=== PATIENT | female | born 1995 | race Hispanic/Latino ===

== ENCOUNTER 2018-08-28 15:23 | Emergency (ER) | payer OTHER ==
[2018-08-28 17:30] LABS: Urine Blood NEGATIVE (NEG); Urine Glucose NEGATIVE (NEG); Urine Protein NEGATIVE (NEG); Urine Specific Gravity 1.015 (1.005-1.030)
--- NOTE | 2018-08-28 17:52 | RAD REPORT ---
EXAM DESCRIPTION: RAD - Shoulder Left 2 View - 08/28/2018 5:30 pm CLINICAL HISTORY: Shoulder pain following lifting injury COMPARISON: None. TECHNIQUE: Internal and external rotation views of the left shoulder were obtained. FINDINGS: There is no fracture or dislocation. AC joint is normal in appearance. No acute or suspici ous findings. IMPRESSION: Negative two-view left shoulder examination.
--- NOTE | 2018-08-28 18:20 | ER ---
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 Transition of care: patient was not received from another setting of care. Onset of symptoms was August 28, 2018. Risk Assessment: Do you want to hurt yourself or someone else? Patient reports no desire to harm self or others. Initial Sepsis Screen: Does the patient meet any 2 criteria? No. Patient's initial sepsis screen is negative. Does the patient have a suspected source of infection? No. Patient's initial sepsis screen is negative. Care prior to arrival: None. 15:37 Method Of Arrival: Ambulatory la1 15:37 Acuity: DIONTE 4 la1 Triage Assessment: 18:00 Injury Description:. 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 - Social history:: Smoking status: Patient/guardian denies using tobacco. - Ebola Screening: : No symptoms or risks identified at this time. Screenin:13 Abuse screen: Denies threats or abuse. Denies injuries from another. Nutritional la1 screening: On. Tuberculosis screening: No symptoms or risk factors identified. Fall Risk None identified. Assessment: 16:12 General: Appears in no apparent distress. Behavior is calm, cooperative. Pain: la1 Complains of pain in anterior aspect of left shoulder and posterior aspect of left shoulder. Neuro: Level of Consciousness is awake, alert, obeys commands, Oriented to person, place, time, situation. Cardiovascular: Capillary refill < 3 seconds Patient's skin is warm and dry. Respiratory: Airway is patent Respiratory effort is even, unlabored, Respiratory pattern is regular, symmetrical. GI: No signs and/or symptoms were reported involving the gastrointestinal system. Musculoskeletal: Circulation, motion, and sensation intact. Capillary refill < 3 seconds, Range of motion: intact in all extremities. 17:24 Reassessment: Patient appears in no apparent distress at this time. Patient and/or iw family updated on plan of care and expected duration. Pain level reassessed. Patient is alert, oriented x 3, equal unlabored respirations, skin warm/dry/pink. Vital Signs: 15:39 BP 131 / 75; Pulse 89; Resp 18; Temp 98.1; Pulse Ox 100% on R/A; Weight 70.31 kg; la1 Height 5 ft. 0 in. (152.40 cm); 15:39 Body Mass Index 30.27 (70.31 kg, 152.40 cm) la1 ED Course: 15:33 Patient arrived in ED. mr 15:38 Triage completed. la1 15:38 Arm band placed on left wrist. la1 16:12 Joshua Fitzgerald RN is Primary Nurse. la1 16:13 Call light in reach. la1 16:13 No provider procedures requiring assistance completed. Patient did not have IV access la1 during this emergency room visit. 16:22 Yifan Daniel PA is PHCP. cp 16:22 Sea Greene MD is Attending Physician. cp 17:30 XRAY Shoulder LEFT 2 view In Process Unspecified. EDMS 18:46 Primary Nurse role handed off by Joshua Fitzgerald RN iw 18:46 Abby Laurent RN is Primary Nurse. iw Administered Medications: No medications were administered Outcome: 18:19 Discharge ordered by . cp 18:45 Discharged to home ambulatory, with family. iw 18:45 Condition: good 18:45 Discharge instructions given to patient, family, Instructed on discharge instructions, follow up and referral plans. medication usage, Demonstrated understanding of instructions, follow-up care, medications, Prescriptions given X 1. 18:46 Patient left the ED. iw Signatures: Dispatcher [employer] EDNJ Alisha Silverman mr Abby Laurent RN RN iw Joshua Fitzgerald RN RN la1 Yifan Daniel PA PA cp
--- NOTE | 2018-08-28 18:21 | EDPHYS ---
Physician Documentation [facility] Name: Joan Reynolds Age: 22 yrs Sex: Female : 1995 Arrival Date: 08/28/2018 Time: 15:33 Bed 10 Private MD: ED Physician Sea Greene HPI: 08/28 16:50 This 22 yrs old Female presents to ER via Ambulatory with complaints of cp Shoulder Injury. 16:50 The patient or guardian complains of pain, that is acute. left shoulder. cp 16:50 Context: The problem was sustained at work, resulted from lifting and tossing heavy bag cp of trash, The patient reports no decreased range of motion. The patient reports no obvious deformity. Onset: The symptoms/episode began/occurred today. Associated signs and symptoms: Pertinent negatives: chest pain, neck pain, Numbness in left arm Weakness in left arm. Severity of symptoms: in the emergency department the symptoms have improved, mildly. Treatment prior to arrival includes: no previous treatment. 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 - Social history:: Smoking status: Patient/guardian denies using tobacco. - Ebola Screening: : No symptoms or risks identified at this time. ROS: 17:00 Constitutional: Negative for body aches, chills, fever, poor PO intake. cp 17:00 Eyes: Negative for injury, pain, redness, and discharge. cp 17:00 ENT: Negative for drainage from ear(s), ear pain, sore throat, difficulty swallowing, difficulty handling secretions. 17:00 Cardiovascular: Negative for chest pain, edema, palpitations. 17:00 Respiratory: Negative for cough, shortness of breath, wheezing. 17:00 Abdomen/GI: Negative for abdominal pain, nausea, vomiting, and diarrhea, constipation, black/tarry stool, rectal bleeding. 17:00 Back: Negative for pain at rest, pain with movement, radiated pain. 17:00 MS/extremity: Positive for pain, tenderness, of the lateral aspect left shoulder, Negative for decreased range of motion, deformity, paresthesias, warmth. 17:00 Skin: Negative for cellulitis, rash. 17:00 Neuro: Negative for dizziness, headache, numbness, weakness. 17:00 All other systems are negative. Exam: 17:05 Constitutional: The patient appears in no acute distress, alert, awake, cp non-diaphoretic, non-toxic, well developed, well nourished. 17:05 Head/Face: Normocephalic, atraumatic. cp 17:05 Eyes: Periorbital structures: appear normal, Conjunctiva: normal, no exudate, no injection, Sclera: no appreciated abnormality, Lids and lashes: appear normal, bilaterally. 17:05 ENT: External ear(s): are unremarkable, Nose: is normal, Mouth: Lips: dry, Oral mucosa: moist, dry, Posterior pharynx: is normal, airway is patent, no erythema, no exudate. 17:05 Neck: C-spine: no acute changes, ROM/movement: is normal, is supple. 17:05 Chest/axilla: Inspection: normal, Palpation: is normal, no crepitus, no tenderness. 17:05 Cardiovascular: Rate: normal, Rhythm: regular, Pulses: Pulses are 2+ in right radial artery and left radial artery. Heart sounds: murmur, not appreciated, Edema: is not appreciated, JVD: is not appreciated. 17:05 Respiratory: the patient does not display signs of respiratory distress, Respirations: normal, no use of accessory muscles, no retractions, no splinting, no tachypnea, labored breathing, is not present, Breath sounds: are clear throughout, no decreased breath sounds, no stridor, no wheezing. 17:05 Abdomen/GI: Inspection: abdomen appears normal, Palpation: abdomen is soft and non-tender, in all quadrants. 17:05 Back: pain, is absent, ROM is normal. 17:05 Musculoskeletal/extremity: Extremities: grossly normal except: noted in the lateral aspect below joint line of left shoulder: tenderness, There is no evidence of decreased ROM, swelling, ROM: full active range of motion, in the left shoulder, Perfusion: the extremity is normally perfused throughout, Sensation intact. 17:05 Skin: cellulitis, is not appreciated, no rash present. 17:05 Neuro: Orientation: to person, place \T\ time. Mentation: is normal, Cerebellar function: is grossly normal, Motor: moves all fours, strength is normal, Sensation: no obvious gross deficits. Vital Signs: 15:39 BP 131 / 75; Pulse 89; Resp 18; Temp 98.1; Pulse Ox 100% on R/A; Weight 70.31 kg; la1 Height 5 ft. 0 in. (152.40 cm); 15:39 Body Mass Index 30.27 (70.31 kg, 152.40 cm) la1 MDM: 16:22 Patient medically screened. 18:18 Data reviewed: vital signs, nurses notes, old medical records, and as a result, I will cp discharge patient. 18:18 Differential diagnosis: Anterior dislocation with fracture, Anterior dislocation cp without fracture, Posterior dislocation with fracture, Posterior dislocation without fracture. 18:18 Counseling: I had a detailed discussion with the patient and/or guardian regarding: the cp historical points, exam findings, and any diagnostic results supporting the discharge/admit diagnosis, radiology results, the need for outpatient follow up, a family practitioner, to return to the emergency department if symptoms worsen or persist or if there are any questions or concerns that arise at home. 18:18 Test interpretation: by ED physician or midlevel provider: plain radiologic studies. 08/28 16:46 Order name: Urine Dipstick--Ancillary (enter results); Complete Time: 18:15 08/28 16:46 Order name: Urine --Ancillary (enter results); Complete Time: 18:15 08/28 16:41 Order name: Urine Dipstick-Ancillary (obtain specimen); Complete Time: 17:38 08/28 16:41 Order name: Urine Test (obtain specimen); Complete Time: 17:38 08/28 16:41 Order name: XRAY Shoulder LEFT 2 view; Complete Time: 18:15 08/28 18:15 Order name: Sling; Complete Time: 18:46 cp Administered Medications: No medications were administered Disposition: 08/28/18 18:19 Discharged to Home. Impression: Pain in left shoulder. - Condition is Stable. - Discharge Instructions: Shoulder Pain, Shoulder Range of Motion Exercises. - Prescriptions for Anaprox DS 550 mg Oral Tablet - take 1 tablet by ORAL route every 12 hours As needed; 20 tablet. - Work release form, Medication Reconciliation Form, Thank You Letter, Antibiotic Education, Prescription Opioid Use form. - Follow up: Private Physician; When: 1 week; Reason: Recheck today's complaints. - Problem is new. - Symptoms have improved. Signatures: Dispatcher [employer] EDAbby Jack RN RN iw Joshua Fitzgerald RN RN la1 Yifan Daniel PA PA cp Corrections: (The following items were deleted from the chart) 18:46 18:19 08/28/2018 18:19 Discharged to Home. Impression: Pain in left shoulder. Condition iw is Stable. Forms are Medication Reconciliation Form, Thank You Letter, Antibiotic Education, Prescription Opioid Use. Follow up: Private Physician; When: 1 week; Reason: Recheck today's complaints. Problem is new. Symptoms have improved. cp
== END 2018-08-28 18:46 | disposition home or self-care (01) ==
LOC: ER 15:23
DX: M25.512 Pain in left shoulder (principal); X50.0XXA Overexertion from strenuous movement or load, initial encounter; Y99.0 Civilian activity done for income or pay
CPT/HCPCS: 81003; 81025; 99283

== ENCOUNTER 2018-12-05 17:39 | Emergency (ER) | payer BC, OTHER ==
--- NOTE | 2018-12-05 18:59 | EDPHYS ---
Physician Documentation [facility] Name: Joan Reynolds Age: 22 yrs Sex: Female : 1995 Arrival Date: 12/05/2018 Time: 17:42 Bed 19 Private MD: ED Physician Len Sterling HPI: 12/05 18:55 This 22 yrs old Female presents to ER via Ambulatory with complaints of Skin pm1 Problem. 18:55 The patient's rash thought to be caused by an unknown cause. The rash is located on the pm1 left clavicle, anterior aspect of left upper chest, right breast and left breast and left arm. The rash can be described as macular, vesicular, itchy. Onset: The symptoms/episode began/occurred 3 week(s) ago. Associated signs and symptoms: Pertinent positives: itching, Pertinent negatives: burning sensation, difficulty breathing, fever, Pain swelling of lips, swelling of throat, swelling of tongue, wheezing. Severity of symptoms: in the emergency department the symptoms are worse Pain is currently a 0 / 10. Treatment given at home: none. The patient has not experienced similar symptoms in the past. The patient has not recently seen a physician. Historical: - Allergies: 17:48 No Known Allergies; la1 - PMHx: 17:48 None; la1 - Immunization history:: Adult Immunizations up to date. - Social history:: Smoking status: Patient/guardian denies using tobacco. - Ebola Screening: : No symptoms or risks identified at this time. ROS: 18:55 Constitutional: Negative for fever, chills, and weight loss, Eyes: Negative for injury, pm1 pain, redness, and discharge, ENT: Negative for injury, pain, and discharge, Neck: Negative for injury, pain, and swelling, Cardiovascular: Negative for chest pain, palpitations, and edema, Respiratory: Negative for shortness of breath, cough, wheezing, and pleuritic chest pain, Abdomen/GI: Negative for abdominal pain, nausea, vomiting, diarrhea, and constipation, Back: Negative for injury and pain, : Negative for injury, bleeding, discharge, and swelling, MS/Extremity: Negative for injury and deformity. 18:55 Neuro: Negative for headache, weakness, numbness, tingling, and seizure. 18:55 Skin: Positive for rash, of the left clavicle, anterior aspect of left upper chest, right breast and left breast and left arm. Exam: 18:55 Constitutional: This is a well developed, well nourished patient who is awake, alert, pm1 and in no acute distress. Head/Face: Normocephalic, atraumatic. Eyes: Pupils equal round and reactive to light, extra-ocular motions intact. Lids and lashes normal. Conjunctiva and sclera are non-icteric and not injected. Cornea within normal limits. Periorbital areas with no swelling, redness, or edema. ENT: Nares patent. No nasal discharge, no septal abnormalities noted. Tympanic membranes are normal and external auditory canals are clear. Oropharynx with no redness, swelling, or masses, exudates, or evidence of obstruction, uvula midline. Mucous membranes moist. Neck: Trachea midline, no thyromegaly or masses palpated, and no cervical lymphadenopathy. Supple, full range of motion without nuchal rigidity, or vertebral point tenderness. No Meningismus. Chest/axilla: Normal chest wall appearance and motion. Nontender with no deformity. No lesions are appreciated. Cardiovascular: Regular rate and rhythm with a normal S1 and S2. No gallops, murmurs, or rubs. Normal PMI, no JVD. No pulse deficits. Respiratory: Lungs have equal breath sounds bilaterally, clear to auscultation and percussion. No rales, rhonchi or wheezes noted. No increased work of breathing, no retractions or nasal flaring. Abdomen/GI: Soft, non-tender, with normal bowel sounds. No distension or tympany. No guarding or rebound. No evidence of tenderness throughout. Back: No spinal tenderness. No costovertebral tenderness. Full range of motion. MS/ Extremity: Pulses equal, no cyanosis. Neurovascular intact. Full, normal range of motion. 18:55 Skin: consistent with contact dermatitis, on the left clavicle, anterior aspect of left upper chest, right breast and left breast and left arm, Abby JETT present as environmental conflict manager for evaluation of rash on breast. 18:55 Neuro: Orientation: is normal, Motor: is normal, moves all fours, Gait: is steady, at a normal pace, without difficulty. Vital Signs: 17:49 Pulse 86; Resp 18; Temp 97.9(TE); Pulse Ox 98% ; Weight 68.04 kg; Height 5 ft. 0 in. la1 (152.40 cm); 17:50 BP 119 / 63; la1 17:49 Body Mass Index 29.29 (68.04 kg, 152.40 cm) la1 MDM: 18:20 Patient medically screened. pm1 18:55 Data reviewed: vital signs. Data interpreted: Pulse oximetry: on room air is 98 %. pm1 Interpretation: normal. Counseling: I had a detailed discussion with the patient and/or guardian regarding: the historical points, exam findings, and any diagnostic results supporting the discharge/admit diagnosis, the need for outpatient follow up, a elephant tamer, a family practitioner, to return to the emergency department if symptoms worsen or persist or if there are any questions or concerns that arise at home. Administered Medications: No medications were administered Disposition: 12/06 12:00 Co-signature as Attending Physician, Len Sterling MD. Disposition: 12/05/18 18:58 Discharged to Home. Impression: Rash and other nonspecific skin eruption. - Condition is Stable. - Discharge Instructions: Contact Dermatitis, Rash. - Prescriptions for Bactroban 2 % Topical Ointment - Apply to affected area 1 application by TOPICAL route every 12 hours; 30 gram. Benadryl 25 mg Oral Capsule - take 1 capsule by ORAL route every 6 hours As needed; 30 tablet. Medrol (Guillaume) 4 mg Oral Tablets, Dose Pack - take 1 tablet by ORAL route as directed - follow package instructions; 1 packet. - Medication Reconciliation Form, Thank You Letter, Antibiotic Education, Prescription Opioid Use form. - Follow up: Emergency Department; When: As needed; Reason: Worsening of condition. Follow up: Private Physician; When: 2 - 3 days; Reason: Recheck today's complaints, Continuance of care, Re-evaluation by your physician. - Problem is new. - Symptoms have improved. Signatures: Scott Zapata, SUPERVISORY HISTORIAN SUPERVISORY HISTORIAN Joshua Arredondo RN RN la1 Christian Perez, MOLD STRIPPER MOLD STRIPPER pm1 Len Sterling MD MD Corrections: (The following items were deleted from the chart) 12/05 19:06 18:58 12/05/2018 18:58 Discharged to Home. Impression: Rash and other nonspecific skin em eruption. Condition is Stable. Forms are Medication Reconciliation Form, Thank You Letter, Antibiotic Education, Prescription Opioid Use. Follow up: Emergency Department; When: As needed; Reason: Worsening of condition. Follow up: Private Physician; When: 2 - 3 days; Reason: Recheck today's complaints, Continuance of care, Re-evaluation by your physician. Problem is new. Symptoms have improved. pm1
--- NOTE | 2018-12-05 18:59 | ER ---
Nurse's Notes [facility] Name: Joan Reynolds Age: 22 yrs Sex: Female : 1995 Arrival Date: 12/05/2018 Time: 17:42 Bed 19 Private MD: Diagnosis: Rash and other nonspecific skin eruption Presentation: 12/05 17:48 Presenting complaint: Patient states: I have a rash on my left arm, breasts, and armpit la1 for the last 3 weeks. Transition of care: patient was not received from another setting of care. Onset of symptoms was December 05, 2018. Risk Assessment: Do you want to hurt yourself or someone else? Patient reports no desire to harm self or others. Initial Sepsis Screen: Does the patient meet any 2 criteria? No. Patient's initial sepsis screen is negative. Does the patient have a suspected source of infection? No. Patient's initial sepsis screen is negative. Care prior to arrival: None. 17:48 Method Of Arrival: Ambulatory la1 17:48 Acuity: DIONTE 5 la1 Historical: - Allergies: 17:48 No Known Allergies; la1 - PMHx: 17:48 None; la1 - Immunization history:: Adult Immunizations up to date. - Social history:: Smoking status: Patient/guardian denies using tobacco. - Ebola Screening: : No symptoms or risks identified at this time. Screenin:45 Abuse screen: Denies threats or abuse. Nutritional screening: No deficits noted. em Tuberculosis screening: No symptoms or risk factors identified. Fall Risk None identified. Assessment: 18:45 General: Appears in no apparent distress. comfortable, Behavior is calm, cooperative. em Pain: Denies pain. Neuro: Level of Consciousness is awake, alert, obeys commands, Oriented to person, place, time, situation. Cardiovascular: Capillary refill < 3 seconds Patient's skin is warm and dry. Respiratory: Airway is patent Respiratory effort is even, unlabored, Respiratory pattern is regular, symmetrical. Derm: Rash noted that is itchy, red, on anterior aspect of left upper chest, right breast, left breast and left arm Reports burning, itching, since 3 weeks ago. Musculoskeletal: Range of motion: intact in all extremities. Vital Signs: 17:49 Pulse 86; Resp 18; Temp 97.9(TE); Pulse Ox 98% ; Weight 68.04 kg; Height 5 ft. 0 in. la1 (152.40 cm); 17:50 BP 119 / 63; la1 17:49 Body Mass Index 29.29 (68.04 kg, 152.40 cm) la1 ED Course: 17:42 Patient arrived in ED. as 17:48 Triage completed. la1 17:48 Arm band placed on left wrist. la1 18:19 Christian Perez NP is PHCP. pm1 18:20 Len Sterling MD is Attending Physician. pm1 18:45 Patient has correct armband on for positive identification. Bed in low position. Call em light in reach. Adult w/ patient. 18:45 MALIHA Mora chaperoned provider for breast exam. em 19:03 Scott Zapata LVN is Primary Nurse. em 19:06 Patient did not have IV access during this emergency room visit. em Administered Medications: No medications were administered Outcome: 18:58 Discharge ordered by MD. pm1 19:06 Discharged to home ambulatory, with family. em 19:06 Condition: good 19:06 Discharge instructions given to patient, Instructed on discharge instructions, follow up and referral plans. medication usage, Demonstrated understanding of instructions, follow-up care, medications, Prescriptions given X 3. 19:06 Patient left the ED. em Signatures: Scott Zapata LVN LVN em Lianna Alicea Lee, RN RN la1 Christian Perez NP CLOTHING EXAMINER pm1
== END 2018-12-05 19:06 | disposition home or self-care (01) ==
LOC: ER 17:39
DX: R21 Rash and other nonspecific skin eruption (principal)
CPT/HCPCS: 99282

== ENCOUNTER 2019-04-07 15:15 | Emergency (ER) | payer BC, SELFPAY ==
[2019-04-07] MEDS ORDERED: FENTANYL CITR 100 MCG/2 ML ONE (15:38)
[2019-04-07] MEDS ORDERED: ONDANSETRON 4 MG/2 ML VIAL ONE (15:39)
--- NOTE | 2019-04-07 15:51 | RAD REPORT ---
EXAM DESCRIPTION: RAD - Ankle Left 3 View -04/07/2019 3:46 pm CLINICAL HISTORY: Left ankle pain status post injury FINDINGS: No fracture or dislocation is seen.
--- NOTE | 2019-04-07 15:54 | RAD REPORT ---
EXAM DESCRIPTION: RAD - Foot Left 3 View - 04/07/2019 3:45 pm CLINICAL HISTORY: Left Foot pain status post injury FINDINGS: No fracture or dislocation is seen.
[2019-04-07] MEDS ORDERED: TETANUS & DIPHTHERIA TOX,ADULT 0.5 ML VIAL ONE (16:07)
[2019-04-07] MEDS ORDERED: BUPIVACAINE 0.5% PF 10 ML VIAL ONE (16:07)
[2019-04-07] MEDS ORDERED: LIDOCAINE 1% MPF 5 ML VIAL ONE (16:07)
--- NOTE | 2019-04-07 16:39 | EDPHYS ---
Physician Documentation [facility] Name: Joan Reynolds Age: 23 yrs Sex: Female : 1995 Arrival Date: 04/07/2019 Time: 15:18 Bed 2 Private MD: ED Physician Yifan Bajwa HPI: 04/07 15:26 This 23 yrs old Female presents to ER via EMS with complaints of Foot Injury, cp Crush Injury To Foot. 15:26 The patient presents with a crush injury, heavy ice cart. The complaints affect the cp dorsum of left foot. Context: cart rolled over foot. Onset: The symptoms/episode began/occurred just prior to arrival. 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 - Social history:: Smoking status: Patient/guardian denies using tobacco. - Ebola Screening: : No symptoms or risks identified at this time. ROS: 15:27 Eyes: Negative for injury, pain, redness, and discharge. cp 15:27 Constitutional: Negative for body aches, chills, fever. 15:27 Cardiovascular: Negative for chest pain. 15:27 Respiratory: Negative for cough, shortness of breath, wheezing. 15:27 Abdomen/GI: Negative for abdominal pain, nausea, vomiting, and diarrhea. 15:27 MS/extremity: Positive for injury or acute deformity, ecchymosis, pain, swelling, tenderness, of the dorsum of left foot. 15:27 All other systems are negative. Exam: 15:28 Head/Face: Normocephalic, atraumatic. cp 15:28 Constitutional: The patient appears in no acute distress, alert, awake, non-toxic, well developed, well nourished, uncomfortable. Vital Signs: 15:15 BP 122 / 84; Pulse 69; Resp 20; Temp 99.1(O); Pulse Ox 98% on R/A; Weight 71.67 kg; sv Height 5 ft. 0 in. (152.40 cm); Pain 10/10; 16:00 Pain 10/10; sv 16:00 BP 130 / 80; Pulse 70; Resp 22; Temp 99(O); Pulse Ox 98% ; sv 17:00 BP 120 / 77; Pulse 71; Resp 18; Temp 99; Pulse Ox 99% ; sv 15:15 Body Mass Index 30.86 (71.67 kg, 152.40 cm) sv Calypso Coma Score: 15:15 Eye Response: spontaneous(4). Verbal Response: oriented(5). Motor Response: obeys sv commands(6). Total: 15. 16:00 Eye Response: spontaneous(4). Verbal Response: oriented(5). Motor Response: obeys sv commands(6). Total: 15. 17:00 Eye Response: spontaneous(4). Verbal Response: oriented(5). Motor Response: obeys sv commands(6). Total: 15. Trauma Score (Adult): 15:15 Eye Response: spontaneous(1); Verbal Response: oriented(1); Motor Response: obeys sv commands(2); Systolic BP: > 89 mm Hg(4); Respiratory Rate: 10 to 29 per min(4); William Score: 15; Trauma Score: 12 16:00 Eye Response: spontaneous(1); Verbal Response: oriented(1); Motor Response: obeys sv commands(2); Systolic BP: > 89 mm Hg(4); Respiratory Rate: 10 to 29 per min(4); Calypso Score: 15; Trauma Score: 12 17:00 Eye Response: spontaneous(1); Verbal Response: oriented(1); Motor Response: obeys sv commands(2); Systolic BP: > 89 mm Hg(4); Respiratory Rate: 10 to 29 per min(4); Calypso Score: 15; Trauma Score: 12 Laceration: 16:35 Wound Repair of 2cm ( 0.8in ) subcutaneous laceration to web space of left third and cp fourth toes. Linear shaped.. Distal neuro/vascular/tendon intact. Anesthesia: Wound infiltrated with 10 mls of Lido/Marcaine. Wound prep: Moderate cleansing by me, Wound irrigation by me. Skin closed with 5 5-0 Prolene using interrupted sutures and sterile technique. Dressed with Bacitracin, 4x4's. Patient tolerated fair. MDM: 15:27 Patient medically screened. [facility] 15:30 Differential diagnosis: dislocation, open fracture, closed fracture, contusion, simple cp laceration. 16:37 Data reviewed: vital signs, nurses notes, radiologic studies, plain films. 16:37 Test interpretation: by ED physician or midlevel provider: xrays of left ankle negative cp for fracture and xrays of left foot negative for fracture. Counseling: I had a detailed discussion with the patient and/or guardian regarding: the historical points, exam findings, and any diagnostic results supporting the discharge/admit diagnosis, radiology results, the need for outpatient follow up, a family practitioner, to return to the emergency department if symptoms worsen or persist or if there are any questions or concerns that arise at home. Response to treatment: the patient's symptoms have markedly improved after treatment, and as a result, I will discharge patient. 04/07 15:21 Order name: XRAY Foot LEFT 3 View; Complete Time: 16:41 cp 04/07 16:41 Interpretation: Reviewed report. 04/07 15:21 Order name: XRAY Ankle LEFT 3 view; Complete Time: 16:41 cp 04/07 16:41 Interpretation: Report reviewed. 04/07 15:21 Order name: IV; Complete Time: 15:27 cp 04/07 15:49 Order name: Dressing - Wound; Complete Time: 17:18 cp 04/07 15:49 Order name: Gloves, Sterile; Complete Time: 17:18 cp 04/07 15:49 Order name: Setup Suture Tray; Complete Time: 17:18 cp 04/07 16:36 Order name: Wound dressing; Complete Time: 17:18 cp 04/07 16:36 Order name: Post-op Orthopedic Shoe; Complete Time: 17:18 cp 04/07 16:36 Order name: Crutches; Complete Time: 17:18 cp Administered Medications: 15:25 Drug: Zofran 4 mg Route: IVP; Site: right forearm; sv 16:00 Follow up: Response: No adverse reaction sv 15:27 Drug: fentaNYL (PF) 25 mcg Route: IVP; Site: right forearm; sv 16:00 Follow up: Pain 10/10 Adult; Response: No adverse reaction sv 16:00 Drug: fentaNYL (PF) 25 mcg Route: IVP; Site: right forearm; sv 16:30 Follow up: Response: No adverse reaction sv 16:00 Drug: Tetanus-Diphtheria Toxoid Adult 0.5 ml {Canvas Marker: [employer]. Exp: sv 12/25/2020. Lot #: [id number]. } Route: IM; Site: right deltoid; 17:00 Follow up: Response: No adverse reaction 16:14 Drug: Lidocaine (1 %) 5 ml {Note: given to Yifan MATIAS for procedure.} Volume: 5 ml; sv Route: Infiltration; 16:14 Drug: Marcaine (0.5 %) 5 ml {Note: given to Yifan MATIAS for procedure.} Volume: 10 ml; sv Route: Infiltration; Disposition: 04/07/19 16:38 Discharged to Home. Impression: Laceration without foreign body of foot - left, Crushing injury of left foot. - Condition is Stable. - Discharge Instructions: Laceration Care, Adult, Crush Injury of the Foot. - Prescriptions for Ibuprofen 800 mg Oral Tablet - take 1 tablet by ORAL route every 8 hours As needed take with food; 30 tablet. Keflex 500 mg Oral Capsule - take 1 capsule by ORAL route every 8 hours for 10 days; 30 capsule. Tylenol- Codeine #3 300-30 mg Oral Tablet - take 2 tablets by ORAL route every 6 hours As needed; 20 tablet. - Work release form, Medication Reconciliation Form, Thank You Letter, Antibiotic Education, Prescription Opioid Use form. - Follow up: Private Physician; When: 2 - 3 days; Reason: Wound Recheck, work injury follow-up. - Problem is new. - Symptoms have improved. Addendum: 04/13/2019 16:45 Co-signature as Attending Physician, Yifan Bajwa MD I agree with the assessment and c luis plan of care. Signatures: Dispatcher [employer] Zandra Gross, Yifan Hassan RN, MD MD cha Williams, Irene, RN RN iw Page, Corey, PA PA cp Corrections: (The following items were deleted from the chart) 04/07 17:20 16:38 04/07/2019 16:38 Discharged to Home. Impression: Laceration without foreign body iw of foot - left; Crushing injury of left foot. Condition is Stable. Forms are Medication Reconciliation Form, Thank You Letter, Antibiotic Education, Prescription Opioid Use. Follow up: Private Physician; When: 2 - 3 days; Reason: Wound Recheck, work injury follow-up. Problem is new. Symptoms have improved. cp
--- NOTE | 2019-04-07 16:39 | ER ---
Nurse's Notes [facility] Name: Joan Reynolds Age: 23 yrs Sex: Female : 1995 Arrival Date: 04/07/2019 Time: 15:18 Bed 2 Private MD: Diagnosis: Laceration without foreign body of foot-left;Crushing injury of left foot Presentation: 04/07 15:15 Presenting complaint: EMS states: left foot crush injury, was at work and a load of ice sv about 800-1000 pounds rolled over her left foot. Bruising, swelling, and laceration noted. Transition of care: patient was not received from another setting of care. Onset of symptoms was April 07, 2019. Risk Assessment: Do you want to hurt yourself or someone else? Patient reports no desire to harm self or others. Initial Sepsis Screen: Does the patient meet any 2 criteria? No. Patient's initial sepsis screen is negative. Does the patient have a suspected source of infection? No. Patient's initial sepsis screen is negative. Care prior to arrival: IV initiated. 20 GA, in the right forearm. 15:15 Method Of Arrival: EMS: [facility] sv 15:15 Acuity: DIONTE 2 sv 15:15 Mechanism of Injury: Crush injury from 800-1000 pounds of ice Extrication was not sv required. Patient was trapped for unknown amount of time. Trauma event details: Injury occurred in the [facility], Injury occurred: in a public building. Injury occurred: April 07, 2019. Triage Assessment: 17:19 General: Appears in no apparent distress. Behavior is calm. Pain: Complains of pain in iw left foot. Injury Description: Laceration sustained to left foot. 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 - Social history:: Smoking status: Patient/guardian denies using tobacco. - Ebola Screening: : No symptoms or risks identified at this time. Screenin:37 Abuse screen: Denies threats or abuse. Denies injuries from another. Nutritional sv screening: No deficits noted. Tuberculosis screening: No symptoms or risk factors identified. Fall Risk No fall in past 12 months (0 pts). No secondary diagnosis (0 pts). IV access (20 points). Ambulatory Aid- None/Bed Rest/Nurse Assist (0 pts). Gait- Normal/Bed Rest/Wheelchair (0 pts) Mental Status- Oriented to own ability (0 pts). Total Do Fall Scale indicates No Risk (0-24 pts). Primary Survey: 15:15 NO uncontrolled hemorrhage observed. A: The patient is alert. Airway: patent, No sv supplemental oxygen in use on arrival. Oral cavity: clear, Trachea midline. Breathing/Chest: Respiratory pattern: regular, Respiratory effort: spontaneous, unlabored, Chest inspection: symmetrical rise and fall of the chest. Circulation: Heart tones present. Pulses: palpable right radial artery, right dorsalis pedis artery, left radial artery and left dorsalis pedis artery. Skin color: pink, Skin temperature: warm, dry. Disability Alert. Exposure/Environment: All clothing and personal items were removed. Forensic evidence collection is not deemed to be indicated at this time. Items placed in patient belonging bag. There is no evidence of uncontrolled external bleeding. Obvious injury(ies) are noted at this time: laceration to the left foot A warming method has been applied: A warm blanket has been provided to the patient. 16:00 Reassessment Airway Airway Patent Oxygen No O2 Oral cavity Clear Trachea Midline sv Breathing/Chest Respiratory pattern Regular Respiratory effort Spontaneous Unlabored Chest inspection Symmetrical Circulation Pulses Palpable Color Corona Temperature Warm Disability Alert. Secondary Survey: 15:15 HEENT: No deficits noted. Gastrointestinal: No deficits noted. : No deficits noted. sv No signs and/or symptoms were reported regarding the genitourinary system. Musculoskeletal: Range of motion: limited in left toes Swelling present in dorsum of left foot, left second toe, left third toe, left fourth toe and left fifth toe bruising noted to the dorsum of the left foot. Vital Signs: 15:15 BP 122 / 84; Pulse 69; Resp 20; Temp 99.1(O); Pulse Ox 98% on R/A; Weight 71.67 kg; sv Height 5 ft. 0 in. (152.40 cm); Pain 10/10; 16:00 Pain 10/10; sv 16:00 BP 130 / 80; Pulse 70; Resp 22; Temp 99(O); Pulse Ox 98% ; sv 17:00 BP 120 / 77; Pulse 71; Resp 18; Temp 99; Pulse Ox 99% ; sv 15:15 Body Mass Index 30.86 (71.67 kg, 152.40 cm) sv Evant Coma Score: 15:15 Eye Response: spontaneous(4). Verbal Response: oriented(5). Motor Response: obeys sv commands(6). Total: 15. 16:00 Eye Response: spontaneous(4). Verbal Response: oriented(5). Motor Response: obeys sv commands(6). Total: 15. 17:00 Eye Response: spontaneous(4). Verbal Response: oriented(5). Motor Response: obeys sv commands(6). Total: 15. Trauma Score (Adult): 15:15 Eye Response: spontaneous(1); Verbal Response: oriented(1); Motor Response: obeys sv commands(2); Systolic BP: > 89 mm Hg(4); Respiratory Rate: 10 to 29 per min(4); William Score: 15; Trauma Score: 12 16:00 Eye Response: spontaneous(1); Verbal Response: oriented(1); Motor Response: obeys sv commands(2); Systolic BP: > 89 mm Hg(4); Respiratory Rate: 10 to 29 per min(4); William Score: 15; Trauma Score: 12 17:00 Eye Response: spontaneous(1); Verbal Response: oriented(1); Motor Response: obeys sv commands(2); Systolic BP: > 89 mm Hg(4); Respiratory Rate: 10 to 29 per min(4); Evant Score: 15; Trauma Score: 12 ED Course: 15:15 Patient maintains SpO2 saturation greater than 95% on room air. sv 15:18 Patient arrived in ED. sv 15:18 Yifan Daniel PA is PHCP. cp 15:18 Yifan Bajwa MD is Attending Physician. cp 15:19 Zandra Garay RN is Primary Nurse. sv 15:22 Triage completed. sv 15:37 Patient has correct armband on for positive identification. Bed in low position. Call sv light in reach. Side rails up X2. 15:38 Arm band placed on. sv 15:38 Thermoregulation: warm blanket given to patient. sv 15:41 XRAY Foot LEFT 3 View In Process Unspecified. EDMS 15:41 XRAY Ankle LEFT 3 view In Process Unspecified. EDMS 17:00 No provider procedures requiring assistance completed. IV discontinued, intact, sv bleeding controlled, No redness/swelling at site. Pressure dressing applied. 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 Exp: sv 12/25/2020. Lot #: [id number]. } Route: IM; Site: right deltoid; 17:00 Follow up: Response: No adverse reaction sv 16:14 Drug: Lidocaine (1 %) 5 ml {Note: given to Yifan MATIAS for procedure.} Volume: 5 ml; sv Route: Infiltration; 16:14 Drug: Marcaine (0.5 %) 5 ml {Note: given to Yifan MATIAS for procedure.} Volume: 10 ml; sv Route: Infiltration; Intake: 15:15 PO: 0ml; Total: 0ml. sv 17:00 PO: 0ml; Total: 0ml. sv Output: 15:15 Urine: 0ml; Total: 0ml. sv 17:00 Urine: 0ml; Total: 0ml. sv Outcome: 16:38 Discharge ordered by . cp 17:19 Discharged to home via wheelchair, with crutches, with family, with friend. iw 17:19 Condition: good 17:19 Patient's length of stay in the Emergency Department was greater than 2 hours. 17:20 Patient left the ED. iw Signatures: Dispatcher [employer] EDZandra Shannon RN RN sv Williams, Irene, RN RN iw Yifan Daniel, POLLY PA cp
== END 2019-04-07 17:20 | disposition home or self-care (01) ==
LOC: ER 15:15
PROC: 0JQR0ZZ Repair Left Foot Subcutaneous Tissue and Fascia, Open Approach (ICD-10-PCS; principal; 2019-04-07)
DX: S91.312A Laceration without foreign body, left foot, initial encounter (principal); X58.XXXA Exposure to other specified factors, initial encounter; Y93.9 Activity, unspecified; Y92.9 Unspecified place or not applicable; Z23 Encounter for immunization
CPT/HCPCS: 90471; 90714; 96374; 96375; 99284; J2405; J3010

== ENCOUNTER 2021-02-16 12:42 | Emergency (ER) | payer OTHER ==
[2021-02-16 13:31] LABS: Urine Blood Negative (Negative); Urine Glucose Negative (Negative); Urine Protein Negative (Negative); Urine Specific Gravity >=1.030 (1.005-1.030); Urine pH 5.5 (5.0-7.0)
[2021-02-16] MEDS ORDERED: KETOROLAC 30 MG/ML INJ ONE (13:42)
[2021-02-16 13:56] LABS: Urine Specific Gravity/Preg >1.030 (1.005-1.030)
--- NOTE | 2021-02-16 14:18 | RAD REPORT ---
EXAM DESCRIPTION: RAD - Shoulder Right 2 View - 02/16/2021 2:04 pm CLINICAL HISTORY: Right shoulder pain FINDINGS: No fracture or dislocation is seen. No bone or joint abnormality noted
--- NOTE | 2021-02-16 15:30 | ER ---
Nurse's Notes [facility] Name: Joan Reynolds Age: 25 yrs Sex: Female : 1995 Arrival Date: 02/16/2021 Time: 12:45 Bed 30 Private MD: Diagnosis: Pain in right shoulder Presentation: 02/16 12:55 Chief complaint: Patient states: "a couple of years ago I had shoulder pain and haven't aa5 had it since then but over the last few weeks it's been hurting again". Pt c/o right shoulder pain. Coronavirus screen: At this time, the client does not indicate any symptoms associated with coronavirus-19. Ebola Screen: Patient negative for fever greater than or equal to 101.5 degrees Fahrenheit, and additional compatible Ebola Virus Disease symptoms. Initial Sepsis Screen: Does the patient meet any 2 criteria? No. Patient's initial sepsis screen is negative. Does the patient have a suspected source of infection? No. Patient's initial sepsis screen is negative. Risk Assessment: Do you want to hurt yourself or someone else? Patient reports no desire to harm self or others. Onset of symptoms was February 16, 2021. 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 - Social history:: Smoking status: Patient denies any tobacco usage or history of. Screenin:00 Abuse screen: Denies threats or abuse. Nutritional screening: No deficits noted. aa5 Tuberculosis screening: No symptoms or risk factors identified. Fall Risk None identified. Assessment: 13:00 General: Appears comfortable, Behavior is calm, cooperative. Pain: Complains of pain in aa5 right shoulder Pain currently is 5 out of 10 on a pain scale. Quality of pain is described as sharp, shooting. Neuro: Level of Consciousness is awake, alert, obeys commands, Oriented to person, place, time, situation. Cardiovascular: Patient's skin is warm and dry. Respiratory: Airway is patent Respiratory effort is even, unlabored, Respiratory pattern is regular, symmetrical. GI: No signs and/or symptoms were reported involving the gastrointestinal system. : No signs and/or symptoms were reported regarding the genitourinary system. EENT: No signs and/or symptoms were reported regarding the EENT system. Derm: Skin is pink, warm \\T\\ dry. Musculoskeletal: Range of motion: intact in all extremities, Reports pain in right shoulder. 13:34 Reassessment: Patient is alert, oriented x 3, equal unlabored respirations, skin aa5 warm/dry/pink. Awaiting x-ray. Vital Signs: 12:55 BP 113 / 52; Pulse 77; Resp 18 S; Temp 98.1(TE); Pulse Ox 99% on R/A; Weight 77.11 kg aa5 (R); Height 5 ft. 0 in. (152.40 cm) (R); 12:55 Body Mass Index 33.20 (77.11 kg, 152.40 cm) aa5 ED Course: 12:45 Patient arrived in ED. am2 12:55 Arm band placed on. aa5 12:55 Patient has correct armband on for positive identification. Bed in low position. Call aa5 light in reach. Side rails up X 1. 12:56 Triage completed. aa5 12:57 Lila Walter, RN is Primary Nurse. aa5 12:58 Rock Escamilla PA is PHCP. [facility] 12:58 Yifan Bajwa MD is Attending Physician. [facility] 14:05 Shoulder Right (2 View) XRAY In Process Unspecified. EDMS 15:29 Jose Mckeon MD is Referral Physician. [facility] 15:45 No provider procedures requiring assistance completed. Patient did not have IV access aa5 during this emergency room visit. Administered Medications: 13:33 Drug: Ketorolac 30 mg Route: IM; Site: right deltoid; aa5 Outcome: 15:30 Discharge ordered by . [facility] 15:48 Discharged to home ambulatory. aa5 15:48 Condition: good 15:48 Discharge instructions given to patient, Instructed on discharge instructions, follow up and referral plans. medication usage, Demonstrated understanding of instructions, follow-up care, medications, Prescriptions given X 2. 15:51 Patient left the ED. aa5 Signatures: Dispatcher [employer] EDSD MickailRock PA PA jmm Calderon, Audri, RN RN aa5 Sharon Griffin am2
--- NOTE | 2021-02-16 15:30 | EDPHYS ---
Physician Documentation [facility] Name: Joan Reynolds Age: 25 yrs Sex: Female : 1995 Arrival Date: 02/16/2021 Time: 12:45 Bed 30 Private MD: ED Physician Yifan Bajwa HPI: 02/16 13:05 This 25 yrs old Female presents to ER via Ambulatory with complaints of jmm Shoulder Pain. 13:05 The patient or guardian complains of pain. Onset: The symptoms/episode began/occurred jmm chronic. Modifying factors: the symptoms are alleviated by nothing. The symptoms are aggravated by movement. Associated signs and symptoms: Pertinent negatives: neck pain. This is a 25 year old female with no chronic medical conditions that presents to the ED with complaints of right shoulder pain beginning approx 1 year ago. Patient states symptoms resolved but returned yesterday. Denies chest pain, denies known injury. . CONCRETE CURER: 12:56 LMP N/A - Irregular menses aa5 Historical: - Allergies: 12:57 No Known Allergies; aa5 - PMHx: 12:57 None; aa5 - PSHx: 12:57 None; aa5 - Immunization history:: Adult Immunizations unknown. - Social history:: Smoking status: Patient denies any tobacco usage or history of. ROS: 13:05 Constitutional: Negative for fever, chills, and weight loss, Cardiovascular: Negative jmm for chest pain, palpitations, and edema, Respiratory: Negative for shortness of breath, cough, wheezing, and pleuritic chest pain. 13:05 MS/extremity: Positive for pain. 13:05 All other systems are negative. Exam: 13:05 Constitutional: This is a well developed, well nourished patient who is awake, alert, jmm and in no acute distress. Head/Face: atraumatic. Eyes: EOMI, no conjunctival erythema appreciated ENT: Moist Mucus Membranes Neck: Trachea midline, Supple Chest/axilla: Normal chest wall appearance and motion. Cardiovascular: Regular rate and rhythm. No edema appreciated Respiratory: Normal respirations, no respiratory distress appreciated Abdomen/GI: Non distended, soft Back: Normal ROM Skin: General appearance color normal 13:05 Musculoskeletal/extremity: ROM: limited active range of motion due to pain, Circulation is intact in all extremities. Sensation intact. 13:05 Skin: Appearance: Color: normal in color. 13:05 Neuro: Orientation: is normal, Mentation: is normal, Memory: is normal. 13:05 Psych: Behavior/mood is pleasant, cooperative. Vital Signs: 12:55 BP 113 / 52; Pulse 77; Resp 18 S; Temp 98.1(TE); Pulse Ox 99% on R/A; Weight 77.11 kg aa5 (R); Height 5 ft. 0 in. (152.40 cm) (R); 12:55 Body Mass Index 33.20 (77.11 kg, 152.40 cm) aa5 MDM: 13:05 Patient medically screened. [facility] 15:28 Data reviewed: vital signs, nurses notes. Counseling: I had a detailed discussion with [facility] the patient and/or guardian regarding: the historical points, exam findings, and any diagnostic results supporting the discharge/admit diagnosis, radiology results, the need for outpatient follow up, to return to the emergency department if symptoms worsen or persist or if there are any questions or concerns that arise at home. ED course: Pain mildly decreased in the ED. Patient advised to follow up with pcp and otherwise given strict return precautions. patient understood and agrees with the plan of care. . 02/16 13:31 Order name: Urine Dipstick-Ancillary [facility] 02/16 13:33 Order name: Urine --Ancillary (enter results) [facility] 02/16 13:21 Order name: Shoulder Right (2 View) XRAY; Complete Time: 14:19 [facility] 02/16 13:21 Order name: Urine Test (obtain specimen); Complete Time: 13:32 [facility] 02/16 13:34 Order name: Urine --Ancillary; Complete Time: 14:02 EDHI Administered Medications: 13:33 Drug: Ketorolac 30 mg Route: IM; Site: right deltoid; aa5 Disposition: 02/17 06:57 Co-signature as Attending Physician, Yifan Bajwa MD I agree with the assessment and [facility] plan of care. Disposition: 02/16/21 15:30 Discharged to Home. Impression: Pain in right shoulder. - Condition is Stable. - Discharge Instructions: Shoulder Pain. - Prescriptions for Prednisone 20 mg Oral Tablet - take 3 tablet by ORAL route once daily for 5 days; 15 tablet. Zanaflex 4 mg Oral Tablet - take 1 tablet by ORAL route every 8 hours As needed; 20 tablet. - Medication Reconciliation Form, Thank You Letter, Antibiotic Education, Prescription Opioid Use, Work release form form. - Follow up: Jose Mckeon MD; When: 2 - 3 days; Reason: Recheck today's complaints, Continuance of care, Re-evaluation by your physician. Signatures: Dispatcher [employer] EDYifan Espinosa MD MD cha Mickail, Joel, PA PA Lila Ragsdale, RN RN aa5 Corrections: (The following items were deleted from the chart) 02/16 15:51 15:30 02/16/2021 15:30 Discharged to Home. Impression: Pain in right shoulder. aa5 Condition is Stable. Forms are Medication Reconciliation Form, Thank You Letter, Antibiotic Education, Prescription Opioid Use. Follow up: Dr. Jose Mckeon; When: 2 - 3 days; Reason: Recheck today's complaints, Continuance of care, Re-evaluation by your physician. addis
[2021-02-16 16:04] VITALS: BP 113/52; TEMP 98.1; O2SAT 99
== END 2021-02-16 15:51 | disposition home or self-care (01) ==
LOC: ER 12:42
DX: M25.511 Pain in right shoulder (principal)
CPT/HCPCS: 81003; 81025; 96372; 99283

== ENCOUNTER 2022-03-08 11:00 | Emergency (ER) | payer OTHER ==
[2022-03-08] MEDS ORDERED: HYDROCODONE/CHLORPHEN 5 ML/OSYR ONE (11:40)
[2022-03-08] MEDS ORDERED: ONDANSETRON 4 MG (ODT) TAB ONE (11:41)
--- NOTE | 2022-03-08 12:42 | ER ---
Nurse's Notes [facility] Name: Joan Reynolds Age: 26 yrs Sex: Female : 1995 Arrival Date: 03/08/2022 Time: 11:04 Bed 16 Private MD: Diagnosis: Otitis media, unspecified, right ear;Acute upper respiratory infection, unspecified Presentation: 03/08 11:07 Chief complaint: Patient states: Cough, sore throat, fever, fatigue, B ear pain for 2 ll1 days. Covid test negative yesterday at [facility]. Coronavirus screen: Vaccine status: Patient reports being unvaccinated. Client denies travel out of the [place] in the last 14 days. chills, congestion, cough unrelated to allergies, fatigue, fever, headache, muscle pain, sore throat, Client presents with at least one sign or symptom that may indicate coronavirus-19. Standard/surgical mask placed on the client. Ebola Screen: Patient denies travel to an Ebola-affected area in the 21 days before illness onset. Initial Sepsis Screen: Does the patient meet any 2 criteria? HR > 90 bpm. No. Patient's initial sepsis screen is negative. Does the patient have a suspected source of infection? Yes: Productive cough/pneumonia. Risk Assessment: Do you want to hurt yourself or someone else? Patient reports no desire to harm self or others. Onset of symptoms was March 07, 2022. 11:07 Method Of Arrival: Ambulatory ll1 11:07 Acuity: DIONTE 4 ll1 Triage Assessment: 11:11 General: Appears in no apparent distress. Behavior is calm, cooperative, appropriate ll1 for age. Pain: Complains of pain in throat Quality of pain is described as aching. EENT: Reports nasal congestion pain when swallowing. Respiratory: Reports cough that is. Historical: - Allergies: 11:09 No Known Allergies; ll1 - PMHx: 11:09 None; ll1 - PSHx: 11:09 None; ll1 - Immunization history:: Client reports having NOT received the Covid vaccine. Flu vaccine status is unknown. - Social history:: Smoking status: Patient denies any tobacco usage or history of. Screenin:01 Abuse screen: Denies threats or abuse. Denies injuries from another. Nutritional ph screening: No deficits noted. Tuberculosis screening: No symptoms or risk factors identified. Fall Risk None identified. Assessment: 11:59 General: Appears in no apparent distress. uncomfortable, Behavior is calm, cooperative, ph appropriate for age, Reports chills for fever for 2-3 days. Pain: Complains of pain in throat and "body aches all over". Neuro: Level of Consciousness is awake, alert, obeys commands, Oriented to person, place, time, situation. Cardiovascular: Capillary refill < 3 seconds in bilateral fingers Patient's skin is warm and dry. Respiratory: Reports cough that is Airway is patent Respiratory effort is even, unlabored, Breath sounds are clear bilaterally. GI: Reports vomiting, after coughing episode. EENT: Throat is reddened has enlarged tonsils bilaterally Reports nasal congestion pain when swallowing. Derm: Skin is intact, Skin is pink, warm \\T\\ dry. Musculoskeletal: Circulation, motion, and sensation intact. Range of motion: intact in all extremities. Vital Signs: 11:07 BP 107 / 79; Pulse 107; Resp 18; Temp 98.9; Pulse Ox 100% ; Weight 83.91 kg; Height 5 ll1 ft. 0 in. (152.40 cm); Pain 9/10; 13:15 BP 108 / 78; Pulse 91; Resp 18; Temp 98.9; Pulse Ox 99% on R/A; ph 11:07 Body Mass Index 36.13 (83.91 kg, 152.40 cm) ll1 ED Course: 11:04 Patient arrived in ED. rg4 11:05 [facility]an Daniel [facility]. cp 11:05 Yifan Bajwa MD is Attending Physician. cp 11:09 Triage completed. ll1 11:09 Arm band placed on Patient placed in an exam room, on a stretcher. ll1 11:26 Yajaira Lambert, MALIHA is Primary Nurse. ph 11:31 Bed in low position. Call light in reach. Side rails up X 1. Door closed. Noise mb7 minimized. Warm blanket given. 11:31 Influenza Screen (a \\T\\ B) Sent. mb7 11:31 COVID-19 SARS RT PCR (Document "Date of Onset" if Symptomatic) Sent. mb7 11:31 Strep Sent. mb7 13:15 No provider procedures requiring assistance completed. Patient did not have IV access ph during this emergency room visit. Administered Medications: 11:58 Drug: Ondansetron 4 mg Route: PO; ph 12:15 Follow up: Response: No adverse reaction ph 11:58 Drug: Tussionex Pennkinetic ER (chlorpheniramine-hydrocodone) Suspension 5 ml Route: PO;ph 12:15 Follow up: Response: No adverse reaction ph Medication: 12:01 VIS not applicable for this client. ph Outcome: 12:41 Discharge ordered by MD. cp 13:16 Discharged to home ambulatory, with significant other. ph 13:16 Condition: good 13:16 Discharge instructions given to patient, Instructed on discharge instructions, follow up and referral plans. medication usage, Demonstrated understanding of instructions, follow-up care, medications, Prescriptions given X 3. 13:16 Patient left the ED. ph Signatures: Yajaira Lambert, RN RN ph Yifan Daniel PA PA cp Garcia, Rubi rg4 Robin Lester RN RN ll1 Alisha Johnson mb7
--- NOTE | 2022-03-08 12:42 | EDPHYS ---
Physician Documentation [facility] Name: Joan Reynolds Age: 26 yrs Sex: Female : 1995 Arrival Date: 03/08/2022 Time: 11:04 Bed 16 Private MD: NATHALIE Physician Yifan Bajwa HPI: 03/08 11:30 This 26 yrs old Female presents to ER via Ambulatory with complaints of Fever, cp Cough, Sore Throat. 11:30 The patient or guardian reports cough, that is intermittent. Onset: The cp symptoms/episode began/occurred 2 day(s) ago. Associated signs and symptoms: Pertinent positives: earache, fever, nausea, sore throat, Pertinent negatives: chest pain, diarrhea. Patient reports testing negative for COVID-19 at [facility] yesterday. Historical: - Allergies: 11:09 No Known Allergies; ll1 - PMHx: 11:09 None; ll1 - PSHx: 11:09 None; ll1 - Immunization history:: Client reports having NOT received the Covid vaccine. Flu vaccine status is unknown. - Social history:: Smoking status: Patient denies any tobacco usage or history of. ROS: 11:30 Eyes: Negative for injury, pain, redness, and discharge. cp 11:30 Constitutional: Positive for fatigue, Negative for fever, poor PO intake. 11:30 ENT: Positive for ear pain, sore throat, Negative for drainage from ear(s), difficulty swallowing, difficulty handling secretions. 11:30 Neck: Negative for pain with movement, pain at rest, stiffness. 11:30 Cardiovascular: Negative for chest pain. 11:30 Respiratory: Positive for cough, "sounds productive", Negative for shortness of breath, wheezing. 11:30 Abdomen/GI: Negative for abdominal pain, nausea, vomiting, and diarrhea. 11:30 : Negative for urinary symptoms. 11:30 Neuro: Negative for altered mental status, dizziness, headache, weakness. 11:30 All other systems are negative. Exam: 11:35 Constitutional: The patient appears in no acute distress, alert, awake, non-toxic, well cp developed, well nourished. 11:35 Head/Face: Normocephalic, atraumatic. cp 11:35 Eyes: Periorbital structures: appear normal, Conjunctiva: normal, no exudate, no injection, Lids and lashes: appear normal, bilaterally. 11:35 ENT: External ear(s): are unremarkable, Ear canal(s): are normal, clear, TM's: erythema, that is moderate, on the right, Nose: is normal, Mouth: Lips: moist, Oral mucosa: moist, Posterior pharynx: Airway: no evidence of obstruction, patent, Tonsils: bilaterally enlarged, with erythema, no exudate, Uvula: midline, erythema, that is mild, exudate, is not appreciated, Voice: is normal. 11:35 Neck: ROM/movement: is normal, is supple, no range of motions limitations, no meningismus, no nuchal rigidity. 11:35 Chest/axilla: Inspection: normal. 11:35 Cardiovascular: Rate: tachycardic, Rhythm: regular. 11:35 Respiratory: the patient does not display signs of respiratory distress, Respirations: normal, no use of accessory muscles, no retractions, labored breathing, is not present, Breath sounds: are clear throughout, no decreased breath sounds, no stridor, no wheezing. 11:35 Abdomen/GI: Exam negative for discomfort, distension, guarding, Inspection: abdomen appears normal. Vital Signs: 11:07 BP 107 / 79; Pulse 107; Resp 18; Temp 98.9; Pulse Ox 100% ; Weight 83.91 kg; Height 5 ll1 ft. 0 in. (152.40 cm); Pain 9/10; 13:15 BP 108 / 78; Pulse 91; Resp 18; Temp 98.9; Pulse Ox 99% on R/A; ph 11:07 Body Mass Index 36.13 (83.91 kg, 152.40 cm) ll1 MDM: 11:12 Patient medically screened. [facility] 12:00 Differential Diagnosis: Bronchitis Influenza Otitis Media Viral Syndrome Pneumonia. cp 12:40 Data reviewed: vital signs, nurses notes, lab test result(s). cp 12:40 Counseling: I had a detailed discussion with the patient and/or guardian regarding: the cp historical points, exam findings, and any diagnostic results supporting the discharge/admit diagnosis, lab results, to return to the emergency department if symptoms worsen or persist or if there are any questions or concerns that arise at home. Response to treatment: the patient's symptoms have markedly improved after treatment, and as a result, I will discharge patient. 03/08 11:22 Order name: Strep cp 03/08 11:22 Order name: COVID-19 SARS RT PCR (Document "Date of Onset" if Symptomatic) cp 03/08 11:22 Order name: Influenza Screen (a \\T\\ B) cp 03/08 12:11 Order name: Throat Culture EDMS Administered Medications: 11:58 Drug: Ondansetron 4 mg Route: PO; ph 12:15 Follow up: Response: No adverse reaction ph 11:58 Drug: Tussionex Pennkinetic ER (chlorpheniramine-hydrocodone) Suspension 5 ml Route: PO;ph 12:15 Follow up: Response: No adverse reaction ph Disposition Summary: 03/08/22 12:41 Discharge Ordered Location: Home cp Problem: new cp Symptoms: have improved cp Condition: Stable cp Diagnosis - Otitis media, unspecified, right ear cp - Acute upper respiratory infection, unspecified cp Followup: cp - With: Private Physician - When: 2 - 3 days - Reason: Worsening of condition Discharge Instructions: - Discharge Summary Sheet cp - Otitis Media, Adult cp - Upper Respiratory Infection, Adult cp - Cool Mist Vaporizer cp Forms: - Medication Reconciliation Form cp - Thank You Letter cp - Antibiotic Education cp - Prescription Opioid Use cp - Work release form ph - Family Work Release ph Prescriptions: - Bromfed DM 2-30-10 mg/5 mL Oral syrup - take 10 milliliter by ORAL route every 6 hours; 200 milliliter; Refills: 0, cp Product Selection Permitted - Augmentin 875-125 mg Oral Tablet - take 1 tablet by ORAL route every 12 hours for 10 days; 20 tablet; Refills: 0, cp Product Selection Permitted - Ibuprofen 800 mg Oral Tablet - take 1 tablet by ORAL route every 8 hours As needed take with food; 30 tablet; cp Refills: 0, Product Selection Permitted Signatures: Dispatcher [employer] EDYifan Espinosa MD MD cha Hall, Patricia, RN RN ph Yifan Daniel PA PA cp Lewis, Lynsay RN RN ll1
[2022-03-08 13:24] VITALS: TEMP 98.9
[2022-03-08 13:26] VITALS: BP 108/78; O2SAT 99
== END 2022-03-08 13:16 | disposition home or self-care (01) ==
LOC: ER 11:00
DX: H66.91 Otitis media, unspecified, right ear (principal); J06.9 Acute upper respiratory infection, unspecified; Z20.822 Contact with and (suspected) exposure to COVID-19
CPT/HCPCS: 87070; 87081; 87804 ×2; 99283; U0003